=== PATIENT | male | born 1960 | race Caucasian/White ===

== ENCOUNTER 2016-12-30 17:06 | Emergency (ER) | payer OTHER | END 2016-12-30 19:45 | disposition left against medical advice (07) | LOC: ER1 17:06 | DX: Z53.21 Procedure and treatment not carried out due to patient leaving prior to being seen by health care provider (principal) ==

== ENCOUNTER → 2016-12-30 | Outpatient (CLI) | payer OTHER | LOC: RAD 16:16 | DX: M54.2 Cervicalgia (principal); M54.9 Dorsalgia, unspecified; I70.0 Atherosclerosis of aorta | CPT/HCPCS: 71020; 72050; 72072; 72110 ==

== ENCOUNTER 2021-05-07 13:20 | Emergency (ER) | payer OTHER ==
[~2021-05-07] VITALS: Ht 177.8 cm; Wt 74.8 kg
[~2021-05-07 13:20] MED LIST: FLEXERIL 10 MG10 MG PO; IBUPROFEN600 MG PO; NORCO 5-325 TA1 EACH PO; Voltaren Gel 1 % TOP
[2021-05-07 18:42] LABS: HEMOGLOBIN 14.9 gm/dl (14.0-17.5); RED BLOOD COUNT 4.64 M/UL (4.20-5.50); WHITE BLOOD COUNT 4.2 K/UL (4.5-11.0)
[2021-05-07 19:06] LABS: BUN/CREATININE RATIO 13 (0-10)
== END 2021-05-07 19:30 | disposition home or self-care (01) ==
LOC: ER1 13:20
PROVIDERS: Physician Assistant
DX: Z23 Encounter for immunization (principal); U07.1 COVID-19; E78.5 Hyperlipidemia, unspecified; I10 Essential (primary) hypertension
CPT/HCPCS: 71045; 80053; 82550; 82553; 83874; 84484; 85025; 87081; 87880; 99284; M0243; U0002